=== PATIENT | female | born 1935 | race Caucasian/White ===

== ENCOUNTER 2021-04-02 05:21 | Emergency (ER) | payer MEDICARE, BC ==
[2021-04-02 05:54] LABS: #Basophils 0.2 thou/uL (0.0-0.2); #Lymphocytes 0.8 thou/uL (1.20-3.40); #Monocytes 1.2 thou/uL (0.11-0.59); %Basophils 2.4 % (0.0-1.0); %Lymphocytes 7.5 % (21.0-51.0); %Neutrophils 78.1 % (42.0-75.0); Hemoglobin 13.2 g/dL (12.0-16.0); Mean Corpuscular HGB CONC 33.5 g/dL (32.0-36.0); Mean Corpuscular Volume 86.6 fL (78.0-98.0); Mean Platelet Volume 9.3 fL (7.4-10.4); Platelet Count 128 thou/uL (130-400); RBC Distribution Width 12.3 % (11.5-14.5); Red Blood Cell (RBC) Count 4.57 mill/uL (4.20-5.40); White Blood Cell (WBC) Count 10.2 thou/uL (4.8-10.8)
[2021-04-02] MEDS ORDERED: Diltiazem 125 MG/25 ML ONE (05:54)
[2021-04-02 06:03] LABS: ALT (SGPT) 24 U/L (8-55); AST (SGOT) 48 U/L (5-34); Albumin 3.4 g/dL (3.4-4.8); Alkaline Phosphatase 35 U/L (40-110); Anion Gap 14 mmol/L (10-20); BUN (Urea Nitrogen) 14 mg/dL (9.8-20.1); Bilirubin, Total 0.9 mg/dL (0.2-1.2); Calc. Creatinine Clearance 0 mL/min (70-130); Calcium 7.7 mg/dL (7.8-10.44); Carbon Dioxide 31 mmol/L (23-31); Chloride 90 mmol/L (98-107); Globulin 2.8 g/dL (2.4-3.5); Glucose 136 mg/dL (83-110); Potassium 3.1 mmol/L (3.5-5.1); Protein, Total 6.2 g/dL (5.8-8.1); Sodium 132 mmol/L (136-145)
[2021-04-02 06:12] LABS: Bilirubin Small (Negative); Blood, Urine Small (Negative); Clarity Clear (Clear); Glucose, Urine (Dipstick) Negative (Negative); Ketone, Urine 40 mg/dL (Negative); Leukocyte Negative (Negative); Nitrite Negative (Negative); Protein, Urine (Dipstick) 100 mg/dL (Neg-Trace); Specific Gravity, Urine 1.025 (1.005-1.030); Urobilinogen 0.2 mg/dL (Less than 2); pH, Urine 5.5 (5.0-9.0)
[2021-04-02 06:20] LABS: Bacteria/HPF Rare-Few HPF (None Seen); RBC/HPF 0-3 HPF (0-3); Squamous Epithelial 0-3 HPF (0-3); WBC/HPF None Seen HPF (0-3)
[2021-04-02 06:21] LABS: CKMB 3.6 ng/mL (0-6.6)
[2021-04-02 06:21] LABS: Mucous/LPF 1+ LPF (<2+)
[2021-04-02 06:53] LABS: SARS-CoV-2 NAA Rapid Test Not Detected (NotDetected)
[2021-04-02 07:17] LABS: Base Excess-Venous 4.4 mmol/L (-2.0 to 3.0); CO2 Tension (PvCO2) 60.2 mmHg (42.0-51.0); Calcium, Ionized 1.01 mmol/L (1.15-1.33); Chloride 89 mmol/L (98-107); Hemoglobin - Calc 13.6 g/dL (12.0-16.0); Potassium 3.3 mmol/L (3.5-5.1); Sodium 131 mmol/L (138-145); T. Carbon Dioxide 33.9 mmol/L (22.0-28.0); vO2 Saturation-calc 75.3 % (60.0-85.0)
== END 2021-04-02 08:48 | disposition short-term general hospital (02) ==
LOC: BURERS 05:21
DX: I48.91 Unspecified atrial fibrillation (principal); R41.82 Altered mental status, unspecified; E03.9 Hypothyroidism, unspecified; Z79.899 Other long term (current) drug therapy; Z20.822 Contact with and (suspected) exposure to COVID-19
CPT/HCPCS: 36415; 51701; 70450; 71045; 80053; 81003; 81015; 82330; 82553; 82803; 83605; 83880; 84484; 85025; 87040; 87086; 93005; 96365; 96366; U0002